=== PATIENT | female | born 1980 | race Caucasian/White ===

== ENCOUNTER 2021-09-23 13:58 | Emergency (ER) | payer OTHER ==
[~2021-09-23] VITALS: Ht 162.6 cm; Wt 123.4 kg
[2021-09-23 14:17] VITALS: BP 130/91
--- NOTE | 2021-09-23 14:23 | ER.PDOC ---
General Chief Complaint: Requesting Medical Care Stated Complaint: HYPERGLYCEMIA TRAVEL OUT OF US: No Time seen by MD: 14:05 Source: patient Exam Limitations: no limitations History of Present Illness Initial Comments This 41-year-old white female is brought in via EMS with a history initially being unconscious unresponsive. However when medics got there patient had actually gone from [facility] over to the [facility] area so she obviously was not unconscious and unresponsive. Patient has been working out in the heat getting a [employer] ready to set up an operational and just appears more acute stress than anything else. Her glucose was 453 on a D stick by the paramedics. Patient indicates that she is never well controlled and that is not unusual for her. Patient is a little bit red and flushed appearing so may Be a bit stressed from the heat however temperature here was 98.3. Timing/Duration: 1 hour Severity: moderate Modifying Factors: improves with other (Nothing) Associated Symptoms: diaphoresis (Diaphoretic secondary to heat) Past Medical History Medical History: diabetes, hypertension Surgical History: cholecystectomy, tubal, other (Uterine ablation) Social History Smoking: non-smoker Alcohol Use: none Drug Use: none Review of Systems Constitutional: diaphoresis EENTM: denies no symptoms reported, denies see HPI, denies eye pain, denies blurred vision, denies tearing, denies double vision, denies ear pain, denies ear discharge, denies nose pain, denies nose congestion, denies throat pain, denies throat swelling, denies mouth pain, denies mouth swelling, denies other Respiratory: denies no symptoms reported, denies see HPI, denies cough, denies orthopnea, denies shortness of breath, denies stridor, denies wheezing, denies other Cardiovascular: denies no symptoms reported, denies see HPI, denies chest pain, denies edema, denies palpitations, denies syncope, denies other Gastrointestinal: denies no symptoms reported, denies see HPI, denies abdominal pain, denies constipation, denies diarrhea, denies nausea, denies vomiting, denies other Genitourinary: denies no symptoms reported, denies see HPI, denies discharge, denies dysuria, denies frequency, denies hematuria, denies pain, denies other Musculoskeletal: denies no symptoms reported, denies see HPI, denies back pain, denies gout, denies joint pain, denies joint swelling, denies muscle pain, denies muscle stiffness, denies neck pain, denies other Skin: denies no symptoms reported, denies see HPI, denies change in color, denies change in hair/nails, denies dryness, denies lesions, denies lumps, denies rash, denies other Psychiatric/Neurological: denies no symptoms reported, denies see HPI, denies anxiety, denies depressed, denies emotional problems, denies headache, denies numbness, denies paresthesia, denies pre-existing deficit, denies seizure, denies tingling, denies tremors, denies weakness, denies other Hematologic/Lymphatic: denies no symptoms reported, denies see HPI, denies anemia, denies blood clots, denies easy bleeding, denies easy bruising, denies swollen glands, denies other Immunological/Allergic: denies no symptoms reported, denies see HPI, denies food allergy, denies grass allergy, denies mold allergy, denies pollen allergy, denies HIV/AIDS, denies transplant Physical Exam General Appearance: No Apparent Distress, Obese EENT: eyes nml inspection Neck: Non-Tender, Full Range of Motion Respiratory: chest non-tender, lungs clear, normal breath sounds, no respiratory distress CVS: no murmur, no gallop, tachycardia (Heart rate varying between 103-105) Gastrointestinal: Normal Bowel Sounds, Non Tender Back: Normal Inspection Extremities: Normal Range of Motion, Non-Tender 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 as Tested, No Motor/Sensory Deficits, Alert, Normal Mood/Affect, Oriented x 3 Skin: Normal Color, Warm/Dry Lymphatic: No Adenopathy Results/Orders Results/Orders Orders - HERNAN JESSICA MD 0.9 % Sodium Chloride (Ns 1000ml) (09/23/21 14:30) 0.9 % Sodium Chloride (Ns 1000ml) (09/23/21 15:30) Vital Signs Date Time Temp Pulse Resp B/P (MAP) Pulse Ox O2 Delivery O2 Flow Rate FiO2 09/23/21 14:17 98.2 101 18 130/91 (104) 97 Room Air* 0 21 09/23/21 14:17 98.2 101 18 09/23/21 14:17 98.2 101 18 97 Administered Medications Medications (Trade) Dose Ordered Sig/Tigre Route PRN Reason Start Time Stop Time Status Last Admin Dose Admin Sodium Chloride 1,000 ml @ 1,200 mls/hr Q50M ONCE IV 09/23/21 14:30 09/23/21 15:19 DC 09/23/21 15:10 1,200 MLS/HR [facility] reported blood glucose of 457. They started fluids on her on the way in and patient is awake and alert on arrival here does sound like just acute stress only patient was given 2 L of saline wide open and blood sugar is now come down to 224 will discharge patient home with instructions to drink plenty of fluids and follow-up with her primary care when she gets home to [facility] DEPART Departure Time of Disposition: 16:15 Disposition: 01 HOME / SELF CARE / HOMELESS Impression: Primary Impression: Heat stress syndrome Additional Impression: Hyperglycemia Condition: Improved Duration or Time Spent with Pa: 15m Return to Work/School Can a patient return to work?: Yes Problem Qualifiers HERNAN JESSICA MD September 23, 2021 14:23
[2021-09-23] MEDS ORDERED: NS 1000ML 1,000 ML IV ONE (14:30)
[2021-09-23] MEDS ORDERED: NS 1000ML 1,000 ML ONE (15:30)
--- NOTE | 2021-09-23 16:09 | NUR ---
GLUCOSE BEDSIDE GLUCOSE 224, DOCTOR NOTIFIED.
[2021-09-23 16:22] VITALS: BP 147/92
[2021-09-23 16:45] VITALS: BP 136/88
== END 2021-09-23 16:50 | disposition home or self-care (01) ==
LOC: ER 13:58
DX: E11.65 Type 2 diabetes mellitus with hyperglycemia (principal); F43.9 Reaction to severe stress, unspecified; I10 Essential (primary) hypertension; Z90.49 Acquired absence of other specified parts of digestive tract
CPT/HCPCS: 82948; 96360; 99283; J7030